=== PATIENT | female | born 1960 | race Caucasian/White ===

== ENCOUNTER 2022-02-06 09:27 | Inpatient (IN) | payer OTHER ==
[~2022-02-06] VITALS: Ht 152.4 cm; Wt 72.6 kg
[~2022-02-06 09:27] MED LIST: ALPRAZOLAM1 MG; AMBIEN10 MG; BUMETANIDE2 MG; ESCITALOPRAM OX10 MG; GABAPENTIN600 MG; INTESTINEX1 CA1; NABUMETONE500 MG; TAMOXIFEN CITRA20 MG; TRAMADOL HCL25 GM; ULTRAM50 MG PO; XANAX1 MG
== END 2022-02-16 19:00 | disposition home or self-care (01) | DRG 378 ==
LOC: ER 09:27 → SEC-K 18:25 → SURG 18:25
PROVIDERS: ADMIT Colon & Rectal Surgery; ATTEND Colon & Rectal Surgery
PROC: BW21YZZ Computerized Tomography (CT Scan) of Abdomen and Pelvis using Other Contrast (ICD-10-PCS; 2022-02-06)
PROC: 0DBK8ZX Excision of Ascending Colon, Via Natural or Artificial Opening Endoscopic, Diagnostic (ICD-10-PCS; principal; 2022-02-07)
PROC: 0DBL8ZX Excision of Transverse Colon, Via Natural or Artificial Opening Endoscopic, Diagnostic (ICD-10-PCS; 2022-02-07)
PROC: BW24YZZ Computerized Tomography (CT Scan) of Chest and Abdomen using Other Contrast (ICD-10-PCS; 2022-02-08)
DX: K62.5 Hemorrhage of anus and rectum (principal); K51.40 Inflammatory polyps of colon without complications; K42.9 Umbilical hernia without obstruction or gangrene; K52.89 Other specified noninfective gastroenteritis and colitis; K64.8 Other hemorrhoids; J20.9 Acute bronchitis, unspecified; N83.292 Other ovarian cyst, left side; N83.291 Other ovarian cyst, right side; F43.10 Post-traumatic stress disorder, unspecified; E11.65 Type 2 diabetes mellitus with hyperglycemia; Z79.84 Long term (current) use of oral hypoglycemic drugs; F43.23 Adjustment disorder with mixed anxiety and depressed mood; I10 Essential (primary) hypertension; Z20.822 Contact with and (suspected) exposure to COVID-19; C50.919 Malignant neoplasm of unspecified site of unspecified female breast

== ENCOUNTER 2024-03-27 14:52 | Emergency (ER) | payer OTHER ==
[~2024-03-27] VITALS: Ht 157.5 cm; Wt 72.6 kg
[2024-03-27] MEDS ORDERED: FAMOTIDINE/PF 20 MG/2 ML VIAL IV PUSH STA (16:16)
[2024-03-27 17:46] LABS: HEMATOCRIT 41.7 % (36.0-45.00); HEMOGLOBIN 14.5 g/dL (12.0-15.00); MEAN CELL VOLUME 86.9 fL (80.00-100.00); MEAN CORPUSCULAR HEMOGLOBIN 30.2 pg (27.00-32.0); MEAN CORPUSCULAR HGB CONC 34.8 g/dl (32.0-36.0); PLATELET COUNT 239 K/uL (150-450); RED BLOOD COUNT 4.79 M/uL (4.00-6.00)
[2024-03-27 18:12] LABS: BILIRUBIN TOTAL 0.43 mg/dL (0.3-1.2); CALCIUM 10.5 mg/dL (8.5-10.1); CREATININE SERUM 0.92 mg/dL (0.55-1.02); GLOBULINA 4.2 G/DL (2.4-3.5); POTASSIUM 4.39 mEq/L (3.5-5.1); TOTAL PROTEIN 8.2 gm/dL (6.4-8.2)
[2024-03-27 18:14] LABS: GFR 61.46
[2024-03-27 18:23] LABS: URINE APPEARANCE Cloudy; URINE BILIRRUBIN Negative (NEGATIVE); URINE BLOOD Negative; URINE COLOR Yellow; URINE GLUCOSE Negative (NEGATIVE); URINE KETONE Trace (NEGATIVE); URINE LEUKOCYTE Large; URINE NITRATE Negative; URINE PROTEIN Negative (NEGATIVE)
[2024-03-27 18:27] LABS: URINE EPITHELIAL CELLS 15.9 uL (0.0-38.8); URINE RBC 32.6 uL (0.0-20.8); URINE WBC 349.7 uL (0.0-23.2)
[2024-03-27 19:00] LABS: URINE CAST 0.61 uL (0.0-1.40)
[2024-03-27] MEDS ORDERED: DICYCLOMINE HCL 20 MG TABLET PO STA (19:09)
[2024-03-27] MEDS ORDERED: LACTOBACILLUS ACIDOPHILUS 1 CAP CAP PO STA (19:10)
== END 2024-03-27 19:42 | disposition home or self-care (01) ==
LOC: ER 14:52
PROVIDERS: General Practice
DX: K29.70 Gastritis, unspecified, without bleeding (principal); R10.9 Unspecified abdominal pain; Z88.0 Allergy status to penicillin; Z88.1 Allergy status to other antibiotic agents
CPT/HCPCS: 36415; 74022; 96365; 99283; J3490

== ENCOUNTER 2024-04-13 12:21 | Emergency (ER) | payer OTHER ==
[~2024-04-13] VITALS: Ht 162.6 cm; Wt 59.0 kg
[2024-04-13] MEDS ORDERED: GUAIFENESIN 200 MG/10 ML BLIST.PACK PO STA (15:00)
[2024-04-13 15:27] LABS: HEMATOCRIT 42.4 % (36.0-45.00); HEMOGLOBIN 14.5 g/dL (12.0-15.00); MEAN CELL VOLUME 87.1 fL (80.00-100.00); MEAN CORPUSCULAR HEMOGLOBIN 29.8 pg (27.00-32.0); MEAN CORPUSCULAR HGB CONC 34.2 g/dl (32.0-36.0); PLATELET COUNT 275 K/uL (150-450); RED BLOOD COUNT 4.87 M/uL (4.00-6.00); RED CELL DISTRIBUTION WIDTH 12.9 % (11.5-14.5)
[2024-04-13 16:10] LABS: CALCIUM 9.8 mg/dL (8.5-10.1); CREATININE SERUM 0.84 mg/dL (0.55-1.02); GFR 68.26; POTASSIUM 3.72 mEq/L (3.5-5.1)
[2024-04-13] MEDS ORDERED: HYDROCODONE/CHLORPHEN P-STIREX 5 ML ML PO STA (19:12)
== END 2024-04-13 19:19 | disposition home or self-care (01) ==
LOC: ER 12:23
PROVIDERS: General Practice
DX: R53.81 Other malaise (principal); R05.9 Cough, unspecified; Z20.822 Contact with and (suspected) exposure to COVID-19; Z88.0 Allergy status to penicillin; Z88.1 Allergy status to other antibiotic agents